=== PATIENT | male | born 1955 | race Caucasian/White ===

== ENCOUNTER 2020-11-01 17:11 | Emergency (ER) | payer OTHER, MEDICARE ==
[~2020-11-01] VITALS: Ht 177.8 cm; Wt 79.4 kg
[~2020-11-01 17:11] MED LIST: NOHOMEMEDICATIONS; ULTRAM 50MG TAB50 MG PO
[2020-11-01] MEDS ORDERED: FLONASE 0.05%50 MCG NARES (17:50)
[2020-11-01] MEDS ORDERED: ZYRTEC10 MG PO (17:50)
[2020-11-01 18:11] LABS: BASOPHILS 1.3 % (0.0-2.0); EOSINOPHILS 3.3 % (0.0-3.0); HEMATOCRIT 40.7 % (42.0-52.0); HEMOGLOBIN 14.4 gm/dL (14.0-18.0); LYMPHOCYTES 28.1 % (24.0-44.0); MCHC 35.3 g/dL (28.0-37.0); PLATELET COUNT 223 thou/uL (150-400); POLYS 58.3 % (36.0-66.0); RBC 4.79 mil/uL (4.50-6.00); RDW 13.3 % (10.5-14.5); WBC 6.8 thou/uL (4.0-11.0)
[2020-11-01 18:27] LABS: CALCIUM 9.5 mg/dL (8.5-10.1); CREATININE 1.2 mg/dL (0.7-1.3); POTASSIUM 3.4 mmol/L (3.5-5.1)
[2020-11-01 18:31] LABS: ALBUMIN 4.6 g/dL (3.4-5.0); DIRECT BILIRUBIN 0.1 mg/dL (<0.1-0.2); TOTAL BILIRUBIN 0.7 mg/dL (0.2-1.0); TOTAL PROTEIN 8.6 g/dL (6.4-8.2)
[2020-11-01 20:11] VITALS: BP 128/69
--- NOTE | 2020-11-03 11:03 | EKG ---
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
== END 2020-11-01 21:35 | disposition short-term general hospital (02) ==
LOC: ER 17:11
PROVIDERS: Nurse Practitioner
DX: R11.2 Nausea with vomiting, unspecified (principal); R51.9 Headache, unspecified; Z79.899 Other long term (current) drug therapy; Z88.5 Allergy status to narcotic agent; Z88.8 Allergy status to other drugs, medicaments and biological substances; Z20.822 Contact with and (suspected) exposure to COVID-19